=== PATIENT | female | born 1950 | race Caucasian/White ===

== ENCOUNTER 2017-06-18 07:57 | Inpatient (IN) | payer OTHER ==
[~2017-06-18] VITALS: Ht 167.6 cm; Wt 74.1 kg
[2017-06-18] MEDS ORDERED: SIMV-13 PO (08:27)
[2017-06-18] MEDS ORDERED: METF-490 PO (08:27)
[2017-06-18] MEDS ORDERED: SODIUM CHLORIDE 0.9% 1,000 ML IV ONE ×2 (09:10→13:15)
[2017-06-18 11:32] LABS: Basophils # (auto) 0 uL; Basophils % (auto) 0.2 % (0.0-2.0); Eosinophils # (auto) 0 uL; Eosinophils % (auto) 0.1 % (0.0-7.0); Hemoglobin 14.4 g/dL (12.2-16.2); Lymphocytes # (auto) 0.4 uL; Mean Corpuscular Hgb Conc. 34.3 g/dL (32.0-36.0); Mean Corpuscular Volume 90.4 fL (80.0-100.0); Monocytes # (auto) 1.5 uL; Monocytes % (auto) 11.4 % (0.0-12.0); Neutrophils # (auto) 11.5 uL; Neutrophils % (auto) 85.3 % (37.0-80.0); Platelet Count (auto) 338 10^3/uL (140-450); Red Blood Cells 4.65 10^6/uL (4.0-5.20); Red Cell Distribution Width 17.9 % (11.8-14.3); White Blood Cell 13.5 10^3/uL (4.4-10.8)
[2017-06-18 11:38] LABS: Albumin 3.5 g/dL (3.4-5.0); Anion Gap 12 (5-15); Aspartate Aminotransferase 36 U/L (15-37); BUN/Creatinine Ratio 26.7; Blood Alcohol < 3.0 mg/dL (0-5); Blood Urea Nitrogen 24 mg/dL (7-18); Calcium 8.7 mg/dL (8.5-10.1); Carbon Dioxide 26 mmol/L (21-32); Chloride 92 mmol/L (98-107); GFR African American 80 mL/min; GFR Non-African American 66 mL/min; Glucose 243 mg/dL (74-106); Sodium 130 mmol/L (136-145)
[2017-06-18 11:43] LABS: Lactic Acid w/Reflex 3.5 mmol/L (0.4-2.0)
[2017-06-18 11:45] LABS: Alanine Aminotransferase 47 U/L (13-56); Alkaline Phosphatase 80 U/L (45-117); Bilirubin, Total 1.3 mg/dL (0.2-1.0); Total Protein 6.7 g/dL (6.4-8.2)
[2017-06-18 11:57] LABS: Potassium 2.4 mmol/L (3.5-5.1)
[2017-06-18] MEDS ORDERED: POTASSIUM CHL 20MEQ/100ML 100 ML IV ONE (12:00)
[2017-06-18] MEDS ORDERED: MORPHINE SULFATE 10 MG/ML INJ 1ML SDV IV PRN (12:15)
[2017-06-18] MEDS ORDERED: DEXTROSE (50%) 50ML SYRG IV PRN (12:15)
[2017-06-18] MEDS ORDERED: PROMETHAZINE HCL 25 MG/ML 1ML IV PRN (12:15)
[2017-06-18] MEDS ORDERED: NITROGLYCERIN 0.4 MG SL TAB SL PRN (12:15)
[2017-06-18] MEDS ORDERED: TEMAZEPAM 15 MG CAP PO PRN (12:15)
[2017-06-18] MEDS ORDERED: LORazepam 0.5 MG TAB PO PRN (12:15)
[2017-06-18] MEDS ORDERED: ASPirin 81 mg TAB PO ONE (12:30)
[2017-06-18] MEDS ORDERED: POTASSIUM CHL 20MEQ/50ML 50 ML IV ONE (12:30)
[2017-06-18 13:00] LABS: CRP High Sensitivity 0.2 mg/dL (< 0.3)
[2017-06-18] MEDS: SOD CHL 0.9%/ KCL 40MEQ 1,000 ML IV SCH ×2 (13:38→19:49)
[2017-06-18] MEDS: LEVOFLOXACIN 500MG 100 ML IV SCH (13:45)
[2017-06-18] MEDS: ENOXAPARIN SOD 40 MG/0.4 ML SYRINGE SC SCH (14:21)
[2017-06-18 17:59] VITALS: BP 137/67
[2017-06-18] MEDS: ACCU-CHEK COMFORT CURVE STRIP VI SCH ×2 (18:00→21:50)
[2017-06-18] MEDS: InsuLIN REG 1unit/0.01ml Soln (100units/ml) SC SCH ×2 (18:32→21:50)
[2017-06-18] MEDS: ACETAMINOPHEN 500 MG TAB PO PRN (18:34)
[2017-06-18] MEDS ORDERED: LORazepam 2MG/ML-1ML VIAL IV PRN (19:45)
[2017-06-18] MEDS ORDERED: NORT25CA PO (20:12)
[2017-06-18 20:41] LABS: Cholesterol 147 mg/dL (< 200); HDL Cholesterol 49 mg/dL (40-59); LDL Cholesterol 82 mg/dL (< 100); Triglycerides 153 mg/dL (< 150)
[2017-06-18 21:38] VITALS: BP 128/65
[2017-06-18] MEDS: ATORVASTATIN 20 MG TAB PO SCH (21:49)
[2017-06-18] MEDS ORDERED: ATORVASTATIN 20 MG TAB PO SCH (22:00)
[2017-06-19 00:50] LABS: Urine Bacteria FEW /hpf (None Seen); Urine Blood Negative /uL (Negative); Urine Specific Gravity 1.011 (1.001-1.035); Urine WBC 1 /hpf (0 - 5)
[2017-06-19 01:10] LABS: Alcohol, Urine < 3.0 mg/dL (0-5); Amphetamine Screen, Urine NEGATIVE (NEGATIVE); Barbiturate Scree,Urine NEGATIVE (NEGATIVE); Benzodiazephine Screen, Urine NEGATIVE (NEGATIVE); Cannabinoid Screen, Urine NEGATIVE (NEGATIVE); Cocaine Screen, Urine NEGATIVE (NEGATIVE); Opiate Scree,Urine NEGATIVE (NEGATIVE); Phencyclidine Screen, Urine NEGATIVE (NEGATIVE)
[2017-06-19 05:05] VITALS: BP 150/77
[2017-06-19] MEDS: SOD CHL 0.9%/ KCL 40MEQ 1,000 ML IV SCH ×3 (05:13→21:15)
[2017-06-19] MEDS: ACETAMINOPHEN 500 MG TAB PO PRN ×2 (05:43→12:14)
[2017-06-19 06:56] LABS: Basophils # (auto) 0 uL; Basophils % (auto) 0.2 % (0.0-2.0); Eosinophils # (auto) 0 uL; Eosinophils % (auto) 0.3 % (0.0-7.0); Hematocrit 36.7 % (36.0-46.0); Hemoglobin 12.9 g/dL (12.2-16.2); Lymphocytes # (auto) 0.4 uL; Lymphocytes % (auto) 6.2 % (10.0-50.0); Mean Corpuscular Hemoglobin 31.1 pg (28.0-32.0); Mean Corpuscular Hgb Conc. 35.1 g/dL (32.0-36.0); Mean Corpuscular Volume 88.6 fL (80.0-100.0); Monocytes # (auto) 0.7 uL; Monocytes % (auto) 11.2 % (0.0-12.0); Neutrophils # (auto) 5.1 uL; Neutrophils % (auto) 82.1 % (37.0-80.0); Nucleated Red Blood Cells % 0.1 %; Platelet Count (auto) 229 10^3/uL (140-450); Red Blood Cells 4.14 10^6/uL (4.0-5.20); White Blood Cell 6.3 10^3/uL (4.4-10.8)
[2017-06-19] MEDS: ACCU-CHEK COMFORT CURVE STRIP VI SCH ×4 (07:02→21:14)
[2017-06-19] MEDS: InsuLIN REG 1unit/0.01ml Soln (100units/ml) SC SCH ×4 (07:02→21:14)
[2017-06-19 07:14] LABS: BUN/Creatinine Ratio 20.3; Bilirubin, Total 0.9 mg/dL (0.2-1.0); Calcium 8.2 mg/dL (8.5-10.1); Potassium 3.4 mmol/L (3.5-5.1); Total Protein 5.9 g/dL (6.4-8.2)
[2017-06-19 09:00] VITALS: BP 138/90
[2017-06-19] MEDS: LEVOFLOXACIN 500MG 100 ML IV SCH ×2 (09:15→09:38)
[2017-06-19] MEDS ORDERED: ASPirin 81 mg TAB PO SCH (10:00)
[2017-06-19] MEDS: ENOXAPARIN SOD 40 MG/0.4 ML SYRINGE SC SCH (12:14)
[2017-06-19 12:43] VITALS: BP 130/65
[2017-06-19] MEDS ORDERED: POTASSIUM CHL 20 Meq TABLET PO ONE (13:30)
[2017-06-19 14:34] LABS: Folate (Folic Acid) 14.04 ng/mL (5.38-24)
[2017-06-19] MEDS ORDERED: ACETAMINOPHEN 325 MG TAB PO PRN (15:00)
[2017-06-19 16:59] VITALS: BP 127/69
[2017-06-19] MEDS: ATORVASTATIN 20 MG TAB PO SCH (21:14)
[2017-06-19 22:00] VITALS: BP 131/68
== END 2017-06-19 22:30 | disposition short-term general hospital (02) | DRG 64 ==
LOC: ER 07:57 → TELE 07:58 → TELE-WESTW 17:17
PROVIDERS: ADMIT Internal Medicine; ATTEND Family Medicine
DX: I63.9 Cerebral infarction, unspecified (principal); G93.41 Metabolic encephalopathy; E11.65 Type 2 diabetes mellitus with hyperglycemia; E87.8 Other disorders of electrolyte and fluid balance, not elsewhere classified; G81.94 Hemiplegia, unspecified affecting left nondominant side; E87.6 Hypokalemia; K59.00 Constipation, unspecified; Z79.82 Long term (current) use of aspirin; Z90.49 Acquired absence of other specified parts of digestive tract; Z79.899 Other long term (current) drug therapy; Z85.048 Personal history of other malignant neoplasm of rectum, rectosigmoid junction, and anus; Z92.21 Personal history of antineoplastic chemotherapy
CPT/HCPCS: 36415; 70450; 71010; 80053; 80061; 80307; 80320; 81001; 82140; 82550; 82607; 82746; 82962; 83036; 83605; 84443; 84484; 85025; 85379; 85652; 86141; 87040; 87081; 87086; 87493; 93005; 93306; 93886; 95819; 96361; 96365; 96367; 97163; 99291; J1815; J1956; J3480

== ENCOUNTER 2020-05-05 03:21 | Inpatient (IN) | payer OTHER ==
[~2020-05-05] VITALS: Ht 165.1 cm; Wt 80.2 kg
[~2020-05-05 03:21] MED LIST: METF-490 PO; NORT25CA PO; SIMV-13 PO
[2020-05-05] MEDS ORDERED: dilTIAZem 25 MG/5 ML VIAL IV ONE ×3 (04:15→06:45)
[2020-05-05] MEDS ORDERED: dilTIAZem HCL 60 MG TAB PO ONE (04:15)
[2020-05-05 06:10] LABS: Urine Bacteria NONE SEEN /hpf (None Seen); Urine Blood TRACE /uL (Negative); Urine Hyaline Cast FEW /lpf (0 - 2); Urine Mucus FEW (None Seen); Urine Specific Gravity 1.007 (1.001-1.035); Urine WBC 7 /hpf (0 - 5)
[2020-05-05 07:27] LABS: Basophils # (auto) 0 10 ^3/uL (0-0.2); Basophils % (auto) 0.1 % (0.0-2.0); Eosinophils # (auto) 0 10 ^3/uL (0-0.8); Hemoglobin 17.1 g/dL (12.2-16.2); Lymphocytes # (auto) 0.6 10 ^3/uL (0.4-5.4); Lymphocytes % (auto) 3.4 % (10.0-50.0); Mean Corpuscular Hgb Conc. 35.5 g/dL (32.0-36.0); Mean Corpuscular Volume 92.8 fL (80.0-100.0); Monocytes # (auto) 1.2 10 ^3/uL (0-1.3); Neutrophils # (auto) 15.6 10 ^3/uL (1.6-8.6); Neutrophils % (auto) 89.5 % (37.0-80.0); Nucleated Red Blood Cells % 0.1 %; Platelet Count (auto) 432 10^3/uL (140-450); Red Blood Cells 5.18 10^6/uL (4.0-5.20); White Blood Cell 17.5 10^3/uL (4.4-10.8)
[2020-05-05 07:46] LABS: Albumin 3.9 g/dL (3.4-5.0); Calcium 8.8 mg/dL (8.5-10.1); Magnesium 2.3 mg/dL (1.6-2.6)
[2020-05-05 07:49] LABS: Lactic Acid w/Reflex 2.3 mmol/L (0.4-2.0)
[2020-05-05] MEDS: POTASSIUM CHL 20MEQ/100ML 100 ML IV SCH ×4 (07:51→14:53)
[2020-05-05 07:53] LABS: BUN/Creatinine Ratio 16.4; Bilirubin, Total 2.1 mg/dL (0.2-1.0); Total Protein 7.1 g/dL (6.4-8.2)
[2020-05-05 07:58] LABS: Potassium 2.2 mmol/L (3.5-5.1)
[2020-05-05] MEDS ORDERED: POTASSIUM CHL 20MEQ/100ML 100 ML IV ONE (08:30)
[2020-05-05] MEDS ORDERED: dilTIAZem 125mg/125ml BAG KIT 125 ML IV ONE (08:30)
[2020-05-05] MEDS ORDERED: SODIUM CHLORIDE 0.9% 1,000 ML IV ONE (08:30)
[2020-05-05] MEDS ORDERED: ONDANSETRON HCL 4 MG/2 ML VIAL IV ONE (08:30)
[2020-05-05] MEDS ORDERED: POTASSIUM EFFERVESENT TAB 25 MEQ PO ONE (08:30)
[2020-05-05] MEDS ORDERED: VANCOMYCIN 1GM/250ML 250 ML IV ONE (08:45)
[2020-05-05] MEDS ORDERED: cefTRIAXone 1GM/50ML D5W 50 ML IV ONE (08:45)
[2020-05-05] MEDS ORDERED: AMIODARONE HCL 150 MG in D5W 5% 100 ML IV ONE (09:45)
[2020-05-05] MEDS ORDERED: AMIODARONE 450mg/250ml AE 250 ML IV SCH (09:55)
[2020-05-05] MEDS: levoFLOXacin 500MG 100 ML IV SCH (10:00)
[2020-05-05] MEDS ORDERED: traMADol HCL 50 MG TAB PO PRN (10:00)
[2020-05-05] MEDS ORDERED: NITROGLYCERIN 0.4 MG SL TAB SL PRN (10:00)
[2020-05-05] MEDS: FAMOTIDINE (10MG/ML) 2ML VL IV SCH ×2 (10:00→23:10)
[2020-05-05] MEDS ORDERED: levoFLOXacin 500MG 100 ML IV ONE (10:00)
[2020-05-05] MEDS ORDERED: TEMAZEPAM 15 MG CAP PO PRN (10:00)
[2020-05-05] MEDS ORDERED: ACETAMINOPHEN 500 MG TAB PO PRN (10:00)
[2020-05-05 10:31] LABS: Amylase 39 U/L (25-115); Lipase 61 U/L (73-393)
[2020-05-05] MEDS: METOPROLOL TARTRATE 25 MG TAB PO SCH ×2 (11:00→23:10)
[2020-05-05] MEDS: ENOXAPARIN SOD 80 MG/0.8ML SYRINGE SC SCH ×2 (11:00→23:10)
[2020-05-05] MEDS: metroNIDAZOLE 500MG/100ML 100 ML IV SCH ×2 (14:00→23:10)
--- NOTE | 2020-05-05 14:54 | NUR ---
Midline Placement: Patient educated on need for midline placement. All risks and benefits explained and all questions and concerns addresses prior to procedure. 4Fr 20cm midline inserted via right basilic vein using Ultrasound. Sterile technique utilized. Blood return obtained from the single lumen and flushed easily with NS using proper technique. Midline secured with saline lock; biodisc and occlusive dressing applied. Primary RN notified. Midline lot #[id number]. INTERNAL LENGTH 20CM EXTERNAL LENGTH 0CM
[2020-05-05] MEDS: AMIODARONE 450mg/250ml AE 250 ML IV SCH (17:05)
[2020-05-05] MEDS: SOD CHL 0.9%/ KCL 40MEQ 1,000 ML IV SCH (21:45)
[2020-05-06] MEDS: metroNIDAZOLE 500MG/100ML 100 ML IV SCH ×3 (06:24→21:10)
[2020-05-06 06:34] LABS: Basophils # (auto) 0 10 ^3/uL (0-0.2); Basophils % (auto) 0.1 % (0.0-2.0); Eosinophils # (auto) 0 10 ^3/uL (0-0.8); Hematocrit 36.9 % (36.0-46.0); Hemoglobin 13.2 g/dL (12.2-16.2); Lymphocytes # (auto) 0.3 10 ^3/uL (0.4-5.4); Lymphocytes % (auto) 3.7 % (10.0-50.0); Mean Corpuscular Hemoglobin 33.4 pg (28.0-32.0); Mean Corpuscular Hgb Conc. 35.8 g/dL (32.0-36.0); Mean Corpuscular Volume 93.2 fL (80.0-100.0); Monocytes # (auto) 0.6 10 ^3/uL (0-1.3); Monocytes % (auto) 7.1 % (0.0-12.0); Neutrophils # (auto) 7.9 10 ^3/uL (1.6-8.6); Neutrophils % (auto) 89.1 % (37.0-80.0); Nucleated Red Blood Cells % 0.1 %; Platelet Count (auto) 299 10^3/uL (140-450); Red Blood Cells 3.96 10^6/uL (4.0-5.20); Red Cell Distribution Width 15.2 % (11.8-14.3); White Blood Cell 8.8 10^3/uL (4.4-10.8)
[2020-05-06 06:53] LABS: BUN/Creatinine Ratio 18.8
[2020-05-06 06:57] LABS: Calcium 7.3 mg/dL (8.5-10.1); Total Protein 5.1 g/dL (6.4-8.2)
[2020-05-06 07:27] LABS: Albumin 2.7 g/dL (3.4-5.0)
[2020-05-06] MEDS: SOD CHL 0.9%/ KCL 40MEQ 1,000 ML IV SCH ×2 (07:30→10:48)
[2020-05-06] MEDS: AMIODARONE 450mg/250ml AE 250 ML IV SCH (07:50)
[2020-05-06] MEDS ORDERED: cloNIDine HCL 0.1 MG TAB PO PRN (09:15)
[2020-05-06] MEDS ORDERED: DIGOXIN 0.25 MG TAB PO SCH (10:00)
[2020-05-06] MEDS ORDERED: dilTIAZem HCL 180MG ER CAP PO SCH (10:00)
[2020-05-06] MEDS: FAMOTIDINE (10MG/ML) 2ML VL IV SCH ×2 (10:46→21:18)
[2020-05-06] MEDS: AMIODARONE HCL 200 MG TAB PO SCH ×2 (10:47→21:10)
[2020-05-06] MEDS: ENOXAPARIN SOD 80 MG/0.8ML SYRINGE SC SCH ×2 (10:47→21:19)
[2020-05-06] MEDS: METOPROLOL TARTRATE 25 MG TAB PO SCH ×2 (10:47→21:20)
[2020-05-06] MEDS: levoFLOXacin 500MG 100 ML IV SCH (10:49)
[2020-05-06] MEDS: ONDANSETRON HCL 4 MG/2 ML VIAL IV PRN (12:16)
[2020-05-06] MEDS ORDERED: DEXTROSE (50%) 50ML SYRG IV PRN (13:00)
--- NOTE | 2020-05-06 13:00 | NUR ---
Telemetry admit from ER: LUKAS LOCKHART admitted to Telemetry unit after SBAR received. Patient oriented to TO FLORES, RN primary RN, unit, room, bed, and unit policies regarding patient care and visiting hours. Patient now on continuous telemetry monitoring, tele box # 65 and telemetry reading on arrival to unit is NSR. Patient encouraged to call if they need something. All questions and concerns addressed, patient verbalized understanding.
[2020-05-06 14:39] VITALS: BP 115/76
--- NOTE | 2020-05-06 16:14 | NUR ---
PATIENT BLOOD PRESSURE AT THIS TIME IS 88/56. CALLED DR. Vin FLOR, NEW ORDERS RECEIVED. READ BACK AND VERIFIED. PATIENT CURRENTLY ASYMPTOMATIC. NO COMPLAINTS OF DIZZINESS.
[2020-05-06] MEDS ORDERED: SODIUM CHLORIDE 0.9% 1,000 ML IV ONE (16:15)
[2020-05-06] MEDS: ACCU-CHEK COMFORT CURVE STRIP VI SCH ×2 (16:38→21:49)
[2020-05-06 16:46] VITALS: BP 85/56
[2020-05-06] MEDS: InsuLIN REG 1unit/0.01ml Soln (100units/ml) SC SCH ×2 (17:12→21:48)
--- NOTE | 2020-05-06 18:40 | NUR ---
BLOOD PRESSURE RECHECK AT THIS TIME IS 104/83
[2020-05-06] MEDS: SODIUM CHLORIDE 0.9% 1,000 ML IV SCH (18:41)
--- NOTE | 2020-05-06 18:51 | NUR ---
Closing note: Patient resting in bed. No S/S of distress at this time. Patient asymptomatic, no dizziness at this time. Care endorsed.
[2020-05-06 22:00] VITALS: BP 105/59
[2020-05-07] MEDS: SODIUM CHLORIDE 0.9% 1,000 ML IV SCH ×4 (01:10→21:10)
[2020-05-07] MEDS: SOD CHL 0.9%/ KCL 40MEQ 1,000 ML IV SCH ×3 (01:59→21:27)
[2020-05-07 05:00] VITALS: BP 108/63
[2020-05-07] MEDS: metroNIDAZOLE 500MG/100ML 100 ML IV SCH ×3 (05:45→21:27)
[2020-05-07] MEDS: InsuLIN REG 1unit/0.01ml Soln (100units/ml) SC SCH ×4 (05:46→21:45)
[2020-05-07] MEDS: ACCU-CHEK COMFORT CURVE STRIP VI SCH ×4 (05:47→21:45)
[2020-05-07 06:15] LABS: Basophils # (auto) 0 10 ^3/uL (0-0.2); Eosinophils # (auto) 0 10 ^3/uL (0-0.8); Eosinophils % (auto) 0.2 % (0.0-7.0); Hematocrit 30.4 % (36.0-46.0); Hemoglobin 10.9 g/dL (12.2-16.2); Lymphocytes # (auto) 0.3 10 ^3/uL (0.4-5.4); Lymphocytes % (auto) 7.7 % (10.0-50.0); Mean Corpuscular Hemoglobin 33.3 pg (28.0-32.0); Mean Corpuscular Volume 92.6 fL (80.0-100.0); Monocytes # (auto) 0.3 10 ^3/uL (0-1.3); Monocytes % (auto) 8.8 % (0.0-12.0); Neutrophils # (auto) 3.2 10 ^3/uL (1.6-8.6); Neutrophils % (auto) 83.3 % (37.0-80.0); Nucleated Red Blood Cells % 0.1 %; Platelet Count (auto) 189 10^3/uL (140-450); Red Blood Cells 3.28 10^6/uL (4.0-5.20); Red Cell Distribution Width 14.9 % (11.8-14.3); White Blood Cell 3.8 10^3/uL (4.4-10.8)
[2020-05-07 06:33] LABS: Potassium 3.5 mmol/L (3.5-5.1)
[2020-05-07 06:43] LABS: Albumin 2.3 g/dL (3.4-5.0); BUN/Creatinine Ratio 21.3; Bilirubin, Total 0.7 mg/dL (0.2-1.0); Calcium 7.5 mg/dL (8.5-10.1); Total Protein 4.3 g/dL (6.4-8.2)
--- NOTE | 2020-05-07 07:15 | NUR ---
Opening Shift Note: Assumed care of patient. Patient asleep at this time. Respirations even and unlabored. No S/S of distress/SOB or pain. Patient NPO at this time. Bed in lowest locked position, side rails up x 2, call light within reach. Patient will be instructed on POC and to call for assist PRN, will continue to monitor for changes Q1hr and PRN.
[2020-05-07 09:00] VITALS: BP 108/61
[2020-05-07] MEDS: FAMOTIDINE (10MG/ML) 2ML VL IV SCH ×2 (09:11→21:45)
[2020-05-07] MEDS: levoFLOXacin 500MG 100 ML IV SCH (09:11)
[2020-05-07] MEDS: AMIODARONE HCL 200 MG TAB PO SCH (09:11)
[2020-05-07] MEDS: ENOXAPARIN SOD 80 MG/0.8ML SYRINGE SC SCH ×2 (09:12→21:45)
--- NOTE | 2020-05-07 09:23 | NUR ---
PATIENT OFF UNIT, RADIOLOGY.
[2020-05-07] MEDS ORDERED: GASTROGRAFIN 120 ML SOL ONE (09:30)
--- NOTE | 2020-05-07 10:39 | NUR ---
PATIENT BACK TO UNIT FROM RADIOLOGY.
[2020-05-07 13:00] VITALS: BP 117/68
--- NOTE | 2020-05-07 15:19 | NUR ---
Nutrition Assessment Notes Please refer to link for full assessment notes. Est Energy needs: 8205-8845 kcals (17-20 kcal/kgBW) Est Protein needs: 76-114 gms/day (1.0-1.5 gm/kgBW) d/t pt with Cancer Will continue to monitor and reassess prn. Addendum: 05/07/20 at [address] Amended: Links added.
[2020-05-07 17:00] VITALS: BP 99/58
--- NOTE | 2020-05-07 18:28 | NUR ---
IV removal: LEFT HAND IV DC'd with clean sterile technique, catheter fully intact. Pressure dressing applied to site. Patient tolerated well.
--- NOTE | 2020-05-07 18:47 | NUR ---
CLOSING NOTE: Patient resting in bed. No S/Sof distress. Care endorsed.
--- NOTE | 2020-05-07 20:17 | NUR ---
Patient ambulated to bathroom with steady gait, denies dizziness or weakness.
[2020-05-07 22:00] VITALS: BP 120/73
[2020-05-08] MEDS: SODIUM CHLORIDE 0.9% 1,000 ML IV SCH ×3 (03:50→17:00)
[2020-05-08 05:00] VITALS: BP 126/65
[2020-05-08] MEDS: metroNIDAZOLE 500MG/100ML 100 ML IV SCH ×2 (05:57→13:42)
[2020-05-08] MEDS: InsuLIN REG 1unit/0.01ml Soln (100units/ml) SC SCH ×3 (06:30→17:00)
[2020-05-08] MEDS: ACCU-CHEK COMFORT CURVE STRIP VI SCH ×3 (06:30→17:00)
[2020-05-08 06:48] LABS: Basophils # (auto) 0 10 ^3/uL (0-0.2); Basophils % (auto) 0.2 % (0.0-2.0); Eosinophils # (auto) 0 10 ^3/uL (0-0.8); Eosinophils % (auto) 0.3 % (0.0-7.0); Hematocrit 27.3 % (36.0-46.0); Lymphocytes # (auto) 0.3 10 ^3/uL (0.4-5.4); Lymphocytes % (auto) 10.6 % (10.0-50.0); Mean Corpuscular Hemoglobin 33.7 pg (28.0-32.0); Mean Corpuscular Hgb Conc. 36.5 g/dL (32.0-36.0); Mean Corpuscular Volume 92.2 fL (80.0-100.0); Monocytes # (auto) 0.3 10 ^3/uL (0-1.3); Neutrophils # (auto) 2.4 10 ^3/uL (1.6-8.6); Neutrophils % (auto) 79.9 % (37.0-80.0); Platelet Count (auto) 158 10^3/uL (140-450); Red Blood Cells 2.96 10^6/uL (4.0-5.20); Red Cell Distribution Width 14.9 % (11.8-14.3); White Blood Cell 3.1 10^3/uL (4.4-10.8)
[2020-05-08 07:08] LABS: Potassium 3.2 mmol/L (3.5-5.1)
[2020-05-08 07:47] LABS: Albumin 2.3 g/dL (3.4-5.0); Bilirubin, Total 0.4 mg/dL (0.2-1.0); Calcium 7.3 mg/dL (8.5-10.1); Total Protein 4.2 g/dL (6.4-8.2)
[2020-05-08 08:00] VITALS: BP 111/53
[2020-05-08 09:00] VITALS: BP 119/70
[2020-05-08] MEDS: FAMOTIDINE (10MG/ML) 2ML VL IV SCH (09:32)
[2020-05-08] MEDS: levoFLOXacin 500MG 100 ML IV SCH (09:34)
[2020-05-08] MEDS ORDERED: APIXABAN 5 MG TAB PO SCH (10:00)
[2020-05-08] MEDS: SOD CHL 0.9%/ KCL 40MEQ 1,000 ML IV SCH ×2 (10:00→18:00)
[2020-05-08] MEDS ORDERED: POTASSIUM CHL 20 Meq TABLET PO ONE (10:00)
[2020-05-08] MEDS ORDERED: AMIODARONE HCL 200 MG TAB PO SCH (10:00)
--- NOTE | 2020-05-08 10:00 | NUR ---
ALBERT HELD SINCE LOVENOX WAS ALREADY ADMINISTERED
--- NOTE | 2020-05-08 10:50 | NUR ---
1045 05/08/20 I spoke with [facility] [employer] Tiff ([phone]) and requested that authorization be provided for patient's continued stay. I let Tiff know that MD notes were faxed over yesterday stating that patient was not stable for transfer-I requested that authorization be provided for yesterday. Per Tiff she will speak with her MD about it and give me a call back. Per Tiff-she spoke with family and they are agreeable to transfer patient to [facility]. I spoke with Dr. Deep Ross-he placed order to transfer patient to [facility]. I faxed transfer order and Notice Regarding Post Stabilization to [facility]-document scanned into [employer]. I let Fabric Cutter Tiff know that patient is stable for transfer-provided contact information for Dr. Deep Ross as well as the nurse's station.
--- NOTE | 2020-05-08 11:00 | NUR ---
PT NOTES RN NADIA WILSON SPOKE TO EMILY FROM [facility]. PT AND STATUS UPDATE GIVEN.
[2020-05-08 12:41] VITALS: BP 128/66
[2020-05-08] MEDS: ONDANSETRON HCL 4 MG/2 ML VIAL IV PRN (13:40)
--- NOTE | 2020-05-08 15:45 | NUR ---
PAGED DR FLOR RE: PAIN AND NAUSEA INFORMED MD THAT PT C/O OF ABDOMINAL PAIN AND NAUSEA. PT BELIEVED IT'S FROM THE BEEF BROTH SHE HAD FOR LUNCH. PT REQUESTED TO SWITCH BACK TO CLEAR LIQUID DIET FOR NOW. NEW ORDERS RECEIVED.
[2020-05-08] MEDS ORDERED: PROMETHAZINE HCL 25 MG/ML 1ML IV PRN (16:00)
[2020-05-08] MEDS ORDERED: KETOROLAC TROMETH 30 MG/ML 1ML VIAL IV PRN (16:00)
[2020-05-08] MEDS ORDERED: ALUM & MAG HYDROX-SIMETH LIQ(MAALOX) 30 ML PO ONE (16:00)
--- NOTE | 2020-05-08 16:10 | NUR ---
1600 05/08/20 I called [facility] and spoke with Customer Care Manager Tiff-she said this patient has been accepted to [facility]-they are just waiting for a bed assignment and will call the nurse's station when one becomes available. I requested that inpatient authorization be provided for 05/07/20, per Tiff it will have to go through the claims department.
[2020-05-08] MEDS ORDERED: ONDANSETRON HCL 4 MG/2 ML VIAL IV PRN (16:15)
--- NOTE | 2020-05-08 16:30 | NUR ---
RECEIVED A CALL FROM [place]. SPOKE TO ELVA. PT WILL BE GOING TO BED 315 AT [facility]. ADMITTING MD IS DR APARICIO. PHONE NUMBER FOR REPORT IS [phone]. [employer] AT 8PM.
[2020-05-08 16:52] VITALS: BP 165/85
--- NOTE | 2020-05-08 19:38 | NUR ---
CALLED FOR REPORT SPOKE WITH SANDIE GARCIA, INFORMED THEM OF PATIENT'S STATUS AND PROVIDED REPORT. ALSO INFORMED RN OF THE PATIENT'S NEGATIVE COVID TEST AND INQUIRED ON [facility] POLICY FOR TRANSFER. PER RN, ONE TEST IS SUFFICIENT FOR TRANSFER AND HOSPITAL WILL CONDUCT OWN COVID TEST. INFORMED OF [facility] ESTIMATED ARRIVAL AT 1999. WILL INFORM SANDIE GARCIA IF TRANSFER IS DELAYED. WILL CONTINUE TO MONITOR AT THIS TIME.
--- NOTE | 2020-05-08 20:00 | NUR ---
[facility] AT BEDSIDE PT TRANSFERRED INTO [facility], DOCUMENTS SIGNED, TELE TO BE SENT.
== END 2020-05-08 20:00 | disposition short-term general hospital (02) | DRG 871 ==
LOC: EDUNIT# 03:21 → EDBD 03:21 → ER 03:25 → OVERFLOW 03:26 → TELE-WESTW 05-06 13:00
PROVIDERS: ADMIT Internal Medicine; ATTEND Family Medicine
DX: A41.9 Sepsis, unspecified organism (principal); I21.4 Non-ST elevation (NSTEMI) myocardial infarction; C19 Malignant neoplasm of rectosigmoid junction; K90.9 Intestinal malabsorption, unspecified; N39.0 Urinary tract infection, site not specified; E87.1 Hypo-osmolality and hyponatremia; I10 Essential (primary) hypertension; Z20.828 Contact with and (suspected) exposure to other viral communicable diseases; E87.6 Hypokalemia; R55 Syncope and collapse; E86.0 Dehydration; E11.51 Type 2 diabetes mellitus with diabetic peripheral angiopathy without gangrene; Z51.5 Encounter for palliative care; I48.91 Unspecified atrial fibrillation; K52.9 Noninfective gastroenteritis and colitis, unspecified; E66.3 Overweight; Z85.048 Personal history of other malignant neoplasm of rectum, rectosigmoid junction, and anus; Z92.3 Personal history of irradiation; Z86.73 Personal history of transient ischemic attack (TIA), and cerebral infarction without residual deficits; Z68.29 Body mass index [BMI] 29.0-29.9, adult; Z83.3 Family history of diabetes mellitus; Z88.1 Allergy status to other antibiotic agents; Z90.49 Acquired absence of other specified parts of digestive tract; Z90.710 Acquired absence of both cervix and uterus; Z92.21 Personal history of antineoplastic chemotherapy
CPT/HCPCS: 36415; 71045; 74176; 74250; 80053; 81001; 82150; 82550; 82962; 83605; 83690; 83735; 83880; 84443; 84484; 85025; 85379; 87040; 87086; 87426; 93005; 93306; G0378; J1815; J1885; J1956; J2405; J3480; J3490; J7060